=== PATIENT | male | born 1980 | race Caucasian/White ===

== ENCOUNTER 2017-12-08 14:18 | Emergency (ER) | payer OTHER ==
[2017-12-08] MEDS ORDERED: Xylocaine 2%-Epi 1:100,000 MDV IJ ONE ×2 (15:00→15:22)
[2017-12-08] MEDS ORDERED: KEFZOL 1 GM IM ONE (15:00)
[2017-12-08] MEDS ORDERED: Adacel Vial IM ONE ×2 (15:00→15:14)
[2017-12-08] MEDS ORDERED: KEFZOL 1 GM ONE (15:12)
--- NOTE | 2017-12-08 15:26 | XRAY ---
Indication: Pain/laceration following injury. Comparison: None 3 views of the left 4th finger demonstrates mild proximal soft tissue swelling. No other bony, articular, or soft tissue abnormalities.
[2017-12-08] MEDS ORDERED: Ativan 1 MG PO ONE (16:27)
[2017-12-08] MEDS ORDERED: OXYCODONE-ACETAMINOPHEN 10-325 PO STA (16:27)
[2017-12-08] MEDS ORDERED: Ativan 1 MG ONE (16:31)
[2017-12-08] MEDS ORDERED: OXYCODONE-ACETAMINOPHEN 10-325 ONE (16:31)
[2017-12-08 18:12] VITALS: BP 112/72; PULSE 58
[2017-12-08 18:15] VITALS: O2SAT 98
--- NOTE | 2017-12-08 18:15 | ERPHSYRPT ---
- History of Present Illness Source: patient Exam Limitations: no limitations Patient Subjective Stated Complaint: pt states "I smashed my left hand between two pieces of metal." Triage Nursing Assessment: Pt alert and oriented X 3, skin pwd. PT ambulates with an upright steady gait, able to speak in clear full sentences. PT left hand bandaged up, pt left hand slightly swollen and small laceration to ring finger on left hand. Physician History: Pt is a 37 y/o male that presented to the ER with a laceratio on his left ring finger in the lateral side. He states, was at work, and gloved, and smashed his finger between two metal sheets. Pt complains of severe pain, but denies any F/C/S. No SOb or cough. His sensation is intact, and so is ROM. The finger is feeling swollen, and is flexed. Timing/Duration: today Quality: burning, painful Severity: moderate Location: hands (L ring finger) Possible Causes: no cause identified Allergies/Adverse Reactions: No Known Drug Allergies Allergy (Unverified 12/08/17 14:31) Hx Tetanus, Diphtheria Vaccination/Date Given: No Hx Influenza Vaccination/Date Given: No Hx Pneumococcal Vaccination/Date Given: No Immunizations Up to Date: Yes - Review of Systems Constitutional: No Fever, No Chills Eyes: No Symptoms Ears, Nose, & Throat: No Symptoms Respiratory: No Cough, No Dyspnea Cardiac: No Chest Pain, No Edema, No Syncope Abdominal/Gastrointestinal: No Abdominal Pain, No Nausea, No Vomiting, No Diarrhea Genitourinary Symptoms: No Dysuria Musculoskeletal: Injury (Laceration of L ring finger) Skin: No Rash Neurological: No Dizziness, No Focal Weakness, No Sensory Changes Psychological: No Symptoms Endocrine: No Symptoms All Other Systems: Reviewed and Negative - Past Medical History Pertinent Past Medical History: No - Past Surgical History Past Surgical History: Yes Other Surgical History: gastric sleeve surgery - Social History Smoking Status: Never smoker Exposure to second hand smoke: No Drug Use: none Patient Lives Alone: No - Nursing Vital Signs Nursing Vital Signs: Initial Vital Signs Temperature 98.7 F 12/08/17 14:25 Pulse Rate 60 12/08/17 14:25 Respiratory Rate 16 12/08/17 14:25 Blood Pressure 139/98 12/08/17 14:25 O2 Sat by Pulse Oximetry 98 12/08/17 14:25 Pain Scale Pain Intensity 4 - Physical Exam General Appearance: no apparent distress, alert Eye Exam: PERRL/EOMI, eyes nml inspection Ears, Nose, Throat Exam: normal ENT inspection, pharynx normal, moist mucous membranes Neck Exam: normal inspection, non-tender, supple, full range of motion Respiratory Exam: normal breath sounds, lungs clear, No respiratory distress Cardiovascular Exam: regular rate/rhythm, normal heart sounds Gastrointestinal/Abdomen Exam: soft, mass, No tenderness Back Exam: normal inspection, normal range of motion, No CVA tenderness, No vertebral tenderness Extremity Exam: normal inspection, normal range of motion, other (L ring finger lacerations x2 on the lateral area and some small laceration on the medial aspect of middle finger) Neurologic Exam: alert, oriented x 3, cooperative, normal mood/affect, sensation nml, No motor deficits Skin Exam: normal color, warm, dry, laceration (As described in MS exam) SpO2: 98 Oxygen Delivery: Room Air Procedures - Laceration/Wound Repair Left Upper Lateral Proximal Finger Wound Location: Left Wound Length (cm): 3 (total of two lacertions in an angle) Wound's Depth, Shape: into muscle, irregular, contused tissue Wound Explored: moderately contaminated Irrigated: Yes Hibiclens Prep: Yes Anesthesia: local, 1% lidocaine w/ Epi Volume Anesthetic (ccs): 5 Wound Debrided: minimal Wound Repaired With: sutures, Dermabond Suture Size/Type: 4-0, ethilon Number of Sutures: 7 Layer Closure?: No Sterile Dressing Applied?: Yes Splint Applied?: Yes Sling Applied?: No - Radiology Exams Left Hand X-ray Interpretation: Reviewed by me (mild soft tissue swelling. No other bony , articular, or soft tissue abnormalities.) Ordered Tests: Active Orders 24 hr Category Date Time Status Prepare for Sutures STAT Care 12/08/17 15:00 Active Sutures STAT Care 12/08/17 15:02 Active Wound Care STAT Care 12/08/17 15:00 Active FINGER(S) Stat Exams 12/08/17 15:16 Completed Medication Summary Discontinued Medications Generic Name Dose Route Start Last Admin Trade Name Freq PRN Reason Stop Dose Admin Cefazolin Sodium 1 g 12/08/17 15:00 12/08/17 15:48 Kefzol 1 Gm IM 12/08/17 15:01 1 g STAT ONE Administration Cefazolin Sodium Confirm 12/08/17 15:12 Kefzol 1 Gm Administered 12/08/17 15:13 Dose 1 g .ROUTE .STK-MED ONE Diphtheria/Tetanus/Acell Pertussis 0.5 ml 12/08/17 15:00 12/08/17 15:49 Adacel Vial IM 12/08/17 15:01 0.5 ml .ONCE ONE Administration Diphtheria/Tetanus/Acell Pertussis Confirm 12/08/17 15:14 Adacel Vial Administered 12/08/17 15:15 Dose 0.5 ml IM .STK-MED ONE Lidocaine/Epinephrine 5 ml 12/08/17 15:00 12/08/17 15:52 Xylocaine 2%-Epi 1:100,000 Mdv IJ 12/08/17 15:01 5 ml STAT ONE Administration Lidocaine/Epinephrine Confirm 12/08/17 15:22 Xylocaine 2%-Epi 1:100,000 Mdv Administered 12/08/17 15:23 Dose 5 ml IJ .STK-MED ONE Lorazepam 2 mg 12/08/17 16:27 12/08/17 16:32 Ativan 1 Mg PO 12/08/17 16:28 2 mg STAT ONE Administration Lorazepam Confirm 12/08/17 16:31 Ativan 1 Mg Administered 12/08/17 16:32 Dose 2 mg .ROUTE .STK-MED ONE Oxycodone/Acetaminophen 1 tab 12/08/17 16:27 12/08/17 16:33 Oxycodone-Acetaminophen 10-325 PO 12/08/17 16:28 1 tab STAT STA Administration Oxycodone/Acetaminophen Confirm 12/08/17 16:31 Oxycodone-Acetaminophen 10-325 Administered 12/08/17 16:32 Dose 1 tab .ROUTE .STK-MED ONE - Progress Progress: improved, pain not gone completely Progress Note: 12/08/17 18:21 Pt was given Percocet and Ativan orally, as he could not tolerate any IV or IM meds. When pt was calm and relaxed, I performed a finger block with Lido and Epi, and did some local blocks as well. 7 sutures were placed with 4-0 ethilon. All the area was clean and sterile. Pt tolerated procedure well. He got tetanus shot and Ancef IV. Keflex will be prescribed, as well as [place]. Pt should f/u with PCP in 10 days for removal of stitches. Will see patient in: office Counseled pt/family regarding: diagnosis, need for follow-up, rad results - Departure Time of Disposition: 18:31 Departure Disposition: Home Clinical Impression: Laceration Condition: Stable Critical Care Time: No Referrals: MARY DEVINE [Primary Care Provider] - Additional Instructions: Pt was educated about compartment syndrome. He is d/c to home with a splint. Instructions were given about removal of sutures. Prescriptions: Cephalexin Mh 500 mg [Keflex 500 mg] 500 mg PO Q6H 10 Days #40 capsule Hydrocodone Bit/Acetaminophen [[place] 10-325 Tablet] 1 each PO Q6H PRN #20 tablet MDD 4 PRN Reason: Pain Hydrocodone/Acetaminophen [[place] 10-325 Tablet] 1 each PO Q6H PRN #20 tablet MDD 4 PRN Reason: Pain
== END 2017-12-08 18:43 | disposition home or self-care (01) ==
LOC: ED 14:18
DX: S61.215A Laceration without foreign body of left ring finger without damage to nail, initial encounter (principal); M79.645 Pain in left finger(s); M79.89 Other specified soft tissue disorders; W23.1XXA Caught, crushed, jammed, or pinched between stationary objects, initial encounter; Y92.89 Other specified places as the place of occurrence of the external cause; Y93.89 Activity, other specified; Y92.64 Mine or pit as the place of occurrence of the external cause; Y99.0 Civilian activity done for income or pay
CPT/HCPCS: 12002; 73140; 80307; 90471; 90715; 96372; 99284; J0690; A9270-GY